=== PATIENT | male | born 1950 | race Caucasian/White ===

== ENCOUNTER → 2017-12-25 | Day surgery (SDC) | payer OTHER ==
[~2017-12-25] MED LIST: LACTATED RINGER'S 1000 ML INJ 1,000 ML ONE; LIDOCAINE 1%/EPINEPHrine 1:100,000 SOLN 30 ML VIAL ONE; MIDAZOLAM HCL 2 MG/2 ML VIAL ONE; PROPOFOL 500 MG/50 ML BTL IV ONE; VANCOMYCIN HCL 1000 MG VIAL ONE; ceFAZolin INJ 1,000 MG VIAL ONE
--- NOTE | 2017-12-27 18:57 | MP ---
cc: Warren Narayan MD, Michael A MD DATE OF OPERATION: 12/25/2017 PROCEDURE: Excision multiple soft tissue masses x11 through separate incisions. PREOPERATIVE DIAGNOSIS: Multiple soft tissue masses on both arms, trunk, and right thigh. POSTOPERATIVE DIAGNOSIS: Multiple soft tissue masses on both arms, trunk, and right thigh of various sizes. ANESTHESIA: LMA SURGEON: Warren Narayan MD CHEESE GRADER: Aniceto Albert CFA. ESTIMATED BLOOD LOSS: 20 mL FLUIDS: 850 mL crystalloid. COMPLICATIONS: None. DRAINS: None. SPECIMEN: 11 specimens to pathology. PROCEDURE IN DETAIL: The patient was seen in the holding area and all 11 sites, as requested by the patient, were marked, circled and initialed by the undersigned and numbered. The patient was taken to the operating room and placed on the operating table in the supine position. After an adequate level of laryngeal mask anesthesia was instituted, the patient was placed on a bump and the right abdomen and right thigh were prepped and draped in the field. The right arm was prepped out in the field, as the IV was placed more proximally on the upper arm. The left arm was prepped and draped as well. Timeout was taken confirming the correct patient, sites, and procedures to be performed. Attention was turned to the right lower abdomen first. All sites were first injected with local anesthetic. An oblique incision was made and carried down to the subcutaneous tissues. A multilock lobulated soft tissue mass was excised. The wound was made hemostatic with electrocautery. Attention was then turned to the right upper thigh and a slightly oblique incision was made in this as well. Dissection was carried down to the soft tissue mass, which was excised with a combination of gentle blunt dissection and electrocautery. This was completely excised and passed off the table as well. Specimen #1 was 6 x 7 cm and specimen. #2 was 5 x 5 cm. Both of these incisions were then closed in 2 layers with interrupted 3-0 Vicryl suture and 5-0 PDS in a running subcuticular fashion. Attention was then turned to the proximal right forearm. An incision was made directly over a mass in a longitudinal fashion and a 2 x 2 cm soft tissue mass was excised with a combination of electrocautery and gentle blunt dissection. A fourth incision was made in the distal forearm on the right and dissection carried down to the soft tissue, at which point a 3 x 4 cm soft tissue mass was excised. A fifth incision was made in the mid posterior forearm and a 2 x 2 cm soft tissue mass was excised from this incision. A sixth incision was made in the proximal posterior forearm and a 1 x 3 cm mass was excised with sharp dissection. Incisions #3, 4, 5 and 6 were all made hemostatic with electrocautery. Following this, the right posterior upper arm and right upper triceps area were exposed by bringing the arm across the patient's chest. A seventh incision was made in the right posterior upper arm directly over the mass and dissection carried out with sharp dissection around a 1 x 2 cm soft tissue mass. The wound was made hemostatic with electrocautery. An eighth incision was made in the right upper triceps area in a longitudinal fashion. A 3 x 3 cm soft tissue mass was excised with a combination of electrocautery and blunt dissection. This wound was made hemostatic with electrocautery as well. Wounds 3, 4, 5, 6, 7 and 8 were closed with interrupted 3-0 Vicryl suture. Wound 8 and wound 4 were closed with two 3-0 Vicryl sutures, each of the others were required only a single 3-0 Vicryl suture. All of these wounds were dressed with Steri-Strips, as were both of the abdominal and thigh incisions. Attention was then turned to the left arm. An incision was made in the distal forearm in a longitudinal fashion and a 2 x 3 cm soft tissue mass excised with electrocautery and gentle blunt dissection. A tenth incision was made in the proximal forearm and a 3 x 3 cm soft tissue mass excised utilizing electrocautery and blunt dissection. The final incision was made in the triceps area and a 3 x 3 cm soft tissue mass was excised after making a longitudinal incision. All 3 3 wounds were made hemostatic with electrocautery. All 3 wounds were closed separately with interrupted 3-0 Vicryl suture. Steri-Strips were applied to all of the wounds on the left and right arms. The patient was then extubated and taken back to the recovery room in stable condition. He tolerated the procedure well. Sponge and needle counts were reported to be correct. MD PREETHI Mendoza/ , 06:15 PM , 06:56 PM
== END | disposition home or self-care (01) ==
LOC: ESDC 10:11
PROVIDERS: ATTEND Surgery Trauma Surgery
DX: D17.1 Benign lipomatous neoplasm of skin and subcutaneous tissue of trunk (principal); D17.23 Benign lipomatous neoplasm of skin and subcutaneous tissue of right leg; D17.22 Benign lipomatous neoplasm of skin and subcutaneous tissue of left arm; D17.21 Benign lipomatous neoplasm of skin and subcutaneous tissue of right arm
CPT/HCPCS: 22903; 24071; 25071; 25075; 27337; 88305; J0690; J2250; J3010; J3370; J7120; 88304